=== PATIENT | male | born 1975 | race Caucasian/White ===

== ENCOUNTER 2017-01-08 23:29 | Emergency (ER) | payer OTHER ==
[2017-01-08 23:40] VITALS: PULSE 80
[2017-01-08] MEDS ORDERED: TORAdol 30 mg Injection IM ONE (23:53)
[2017-01-08] MEDS ORDERED: NORCO 5/325 MG PO ONE (23:53)
[2017-01-08] MEDS ORDERED: TORAdol 30 mg Injection ONE (23:56)
[2017-01-08] MEDS ORDERED: NORCO 5/325 MG ONE (23:56)
--- NOTE | 2017-01-08 23:59 | ERPHSYRPT ---
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) ET THE RESIDENT WENT TO FALL, CAUSING THE PT TO HAVE MID TO LOWER BACK PAIN, THEREAFTER - DENIES BOWEL OR BLADDER DYSFUNTION OR RADIATION TO THE DISTAL EXTREMITIES Triage Nursing Assessment: AMBULATORY TO TREATMENT AREA - STEADY GAIT - MOVES ALL EXTREMITIES WITH EQUAL STRENGTH. ALERT/ORIENTED - PLEASANT AFFECT. SKIN PWD - NO RASH/INJURY APPRECIATED. RESPS EASY - NON-LABORED - SHALLOW PER PAIN Physician History: ABOUT 2100 TONIGHT PT WAS AT WORK([facility]) AND WAS WALKING A PATIENT WHEN THE PT'S LEG GAVE WAY AND PT EASED PT TO THE FLOOR WITH RESULTANT LOW BACK PAIN AFTER; DENIES NUMBNESS OF THE FEET; DENIES ABDOMINAL PAIN, NAUSEA, DYSURIA. Allergies/Adverse Reactions: No Known Drug Allergies Allergy (Unverified 01/08/17 23:31) Hx Tetanus, Diphtheria Vaccination/Date Given: No Hx Influenza Vaccination/Date Given: No Hx Pneumococcal Vaccination/Date Given: No Immunizations Up to Date: Yes - Review of Systems Musculoskeletal: Back Pain (LOW) All Other Systems: Reviewed and Negative - Past Medical History Pertinent Past Medical History: No - Past Surgical History Past Surgical History: Yes Other Surgical History: RIGHT FOOT: FOREIGN BODY REMOVAL - Social History Smoking Status: Never smoker Exposure to second hand smoke: No Drug Use: none Patient Lives Alone: No - Nursing Vital Signs Temperature: 98.7 F Temperature Source: Oral Pulse Rate: 80 Respiratory Rate: 14 Pain Intensity: 5 - Physical Exam General Appearance: alert Eye Exam: PERRL/EOMI Ears, Nose, Throat Exam: pharynx normal, moist mucous membranes Neck Exam: non-tender, full range of motion Respiratory Exam: normal breath sounds, lungs clear Cardiovascular Exam: normal heart sounds Gastrointestinal Exam: soft, normal bowel sounds Back Exam: normal range of motion, other (MILD LEFT PARAVERTEBRAL MUSCLE TENDERNESS), No vertebral tenderness Extremity Exam: normal inspection, normal range of motion, No pedal edema Peripheral Pulses: dorsalis-pedis (R): 3+, dorsalis-pedis (L): 3+ Neurologic Exam: alert, cooperative Skin Exam: warm, dry SpO2 Interpretation: normal SpO2: 99 Oxygen Delivery: Room Air - Course Nursing assessment & vital signs reviewed: Yes - Departure Time of Disposition: 00:00 Departure Disposition: Home Clinical Impression: LUMBAR STRAIN Condition: Fair Critical Care Time: No Instructions: Low Back Pain Additional Instructions: FOLLOW UP WITH PRIVATE DOCTOR TOMORROW. DO NOT LIFT, BEND OR TWIST TORSO. Prescriptions: Naproxen [Naprosyn] 500 mg PO [id number] PRN #20 tablet PRN Reason: Pain Cyclobenzaprine HCl [Flexeril] 10 mg PO TID #20 tablet
[2017-01-09 00:39] VITALS: BP 148/82; O2SAT 98
== END 2017-01-09 00:39 | disposition home or self-care (01) ==
LOC: ED 23:29
DX: S39.012A Strain of muscle, fascia and tendon of lower back, initial encounter (principal); X50.0XXA Overexertion from strenuous movement or load, initial encounter; Y93.F2 Activity, caregiving, lifting; Y92.129 Unspecified place in nursing home as the place of occurrence of the external cause; Y99.0 Civilian activity done for income or pay
CPT/HCPCS: 96372; 99282; J1885